=== PATIENT | male | born 1945 | race Caucasian/White ===

== ENCOUNTER → 2017-05-18 | Outpatient (CLI) | payer OTHER ==
[~2017-05-18] MED LIST: IOPAMIDOL (ISOVUE-300) 100 ML BTL ONE
== END ==
LOC: FIMAGING 14:59
PROVIDERS: ATTEND Specialist
DX: N20.0 Calculus of kidney (principal); N39.0 Urinary tract infection, site not specified; N28.1 Cyst of kidney, acquired; K59.00 Constipation, unspecified; K57.30 Diverticulosis of large intestine without perforation or abscess without bleeding
CPT/HCPCS: 74178; Q9967

== ENCOUNTER 2018-08-31 05:37 | Observation (INO) | payer OTHER ==
[2018-08-31] MEDS ORDERED: DILTIAZEM 25 MG/5 ML VIAL IVP ONE ×2 (05:47→05:52)
[2018-08-31] MEDS ORDERED: DILTIAZEM HCL/D5W 125 ML IV ONE (05:52)
[2018-08-31] MEDS ORDERED: NS 500 ML IV ONE ×2 (05:52→06:21)
--- NOTE | 2018-08-31 05:56 | EDPHY ---
H & P Stated Complaint: afib Time Seen by Provider: 08/31/18 05:44 HPI/ROS: HPI The patient presents with palpitations, chest pain, shortness of breath, dizziness and diaphoresis which began a little bit before 4:00 a.m.. He fell restless when trying to sleep and cutting get comfortable. He then noticed palpitations beginning. He had a heavy sensation of a congestion throughout his chest and reports that he was painting and became somewhat sweaty. His because his symptoms continued, he came in. He has a history of atrial fibrillation with RVR, he was cardioverted for this in 2016. He is on Eliquis. REVIEW OF SYSTEMS 10 systems were reviewed and negative with the exception of the elements mentioned in the history of present illness. PMHx: Hypertension, obstructive sleep apnea, atrial fibrillation on Eliquis, obesity Soc Hx: Housed, here with his PHYSICAL General Appearance: Alert, no distress Eyes: Pupils equal and round no pallor or injection ENT, Mouth: Mucous membranes moist Respiratory: There are no retractions, lungs are clear to auscultation Cardiovascular: Tachycardic, irregularly irregular Gastrointestinal: Abdomen is soft and non-tender, no masses, bowel sounds normal Neurological: A&O, moves all extremities Skin: Warm and dry, no rashes Musculoskeletal: Neck is supple non tender Extremities: symmetrical, full range of motion Psychiatric: Patient is oriented X 3, there is no agitation Source: Patient Exam Limitations: No limitations - Personal History Current Tetanus Diphtheria and Acellular Pertussis (TDAP): No - Medical/Surgical History Hx Asthma: No Hx Chronic Respiratory Disease: No Hx Diabetes: Yes Hx Cardiac Disease: Yes Hx Renal Disease: No Hx Cirrhosis: No Hx Alcoholism: No Hx HIV/AIDS: No Hx Splenectomy or Spleen Trauma: No Other PMH: HTN SLEEP APNEA, obesity, AFib - Social History Smoking Status: Former smoker Constitutional: Initial Vital Signs Temperature (C) 36.6 C 08/31/18 05:41 Heart Rate 145 H 08/31/18 05:41 Respiratory Rate 18 08/31/18 05:41 Blood Pressure 182/91 H 08/31/18 05:41 O2 Sat (%) 91 L 08/31/18 05:41 O2 Delivery Mode Nasal Cannula O2 (L/minute) 2 Allergies/Adverse Reactions: No Known Allergies Allergy (Verified 08/31/18 05:44) Home Medications: Medication Instructions Recorded Lisinopril/Hydrochlorothiazide 1 each PO DAILY 02/15/16 [Zestoretic 20-25 Tablet] Metoprolol Succinate Xr [Toprol Xl 50 mg PO DAILY 02/15/16 50 mg (*)] Naproxen Sodium [Aleve 220 MG (*)] 220 - 440 mg PO DAILY PRN 02/15/16 Simvastatin 40 mg PO HS 02/15/16 metFORMIN HCL [Glucophage 500 mg 500 mg PO BID 02/15/16 (*)] Apixaban [Eliquis] 5 mg PO BID #60 tab 02/25/16 Ezetimibe [Zetia 10 MG (*)] 10 mg PO DAILY 08/31/18 Herbals/Supplements -Info Only 1 ea PO DAILY 08/31/18 Naphazoline HCl/Glycerin [Clear 1 drop EACHEYE DAILY PRN 08/31/18 Eyes Redness Relief Drop] Medical Decision Making - Diagnostics EKG Interpretation: EKG: Complete interpretation has been separately recorded in the [employer] archive. Summary impression: Atrial fibrillation with RVR, rate of approximately 150 Imaging Results: Chest x-ray single view shows mild cardiomegaly, interpreted by me, radiology interpretation pending. Imaging: I viewed and interpreted images myself Differential Diagnosis: 72-year-old man with history of atrial fibrillation presents with several hours of palpitations, shortness of breath, congested sensation of his chest, dizziness. Here, blood pressure is actually elevated, he is in AFib with RVR. Plan for treatment initially with diltiazem. Patient received diltiazem bolus and was started on a drip. Heart rate remained 110s to 120s in atrial fibrillation. His symptoms improved somewhat. His labs were relatively unremarkable with slightly elevated BNP though not as high as previous values. He was given some magnesium. I feel he should be admitted for ongoing atrial fibrillation with RVR. I have discussed the case with Dr. Malhotra who will admit the patient. Differential diagnosis includes AFib with RVR, CHF with exacerbation, ACS, less likely pulmonary embolism. - Data Points Laboratory Results: Laboratory Results 08/31/18 05:58 08/31/18 05:58 Medications Given: Apixaban (Eliquis) 5 mg PO BID CARIDAD Stop: 02/27/19 11:29 Last Admin: 08/31/18 21:39 Dose: 5 mg Diltiazem/Dextrose (Diltiazem 125mg/125ml (Premix)) 125 mls @ 0 mls/hr IV CONT CARIDAD; Per Protocol PRN Reason: Protocol Stop: 02/27/19 06:59 Last Admin: 08/31/18 14:15 Dose: 125 mls Insulin Human Lispro (Humalog Lispro) 0 unit SC TIDMEAL CARIDAD PRN Reason: Protocol Stop: 02/27/19 07:59 Last Admin: 08/31/18 18:36 Dose: 8 units Metformin HCl (Glucophage) 500 mg PO BID CARIDAD Stop: 02/27/19 20:59 Last Admin: 08/31/18 21:39 Dose: 500 mg Discontinued Medications Diltiazem HCl (Cardizem 25 Mg/5 Ml Vial) 27.2155 mg IVP EDNOW ONE Stop: 08/31/18 05:53 Last Admin: 08/31/18 05:58 Dose: 27.2155 mg Diltiazem/Dextrose (Diltiazem 125mg/125ml (Premix)) 125 mls @ 0 mls/hr IV EDNOW ONE; As Directed PRN Reason: Protocol Stop: 08/31/18 05:53 Last Admin: 08/31/18 06:11 Dose: 125 mls Sodium Chloride (Ns) 500 mls @ 0 mls/hr IV EDNOW ONE; Wide Open PRN Reason: Protocol Stop: 08/31/18 05:53 Last Admin: 08/31/18 06:07 Dose: 500 mls Sodium Chloride (Ns) 500 mls @ 1,000 mls/hr IV EDNOW ONE PRN Reason: Protocol Stop: 08/31/18 06:50 Last Admin: 08/31/18 06:30 Dose: 500 mls Magnesium Sulfate (Magnesium Sulf 2 Gm (Premix)) 50 mls @ 50 mls/hr IV EDNOW ONE Stop: 08/31/18 07:20 Last Admin: 08/31/18 06:44 Dose: 50 mls Metoprolol Succinate (Toprol Xl) 50 mg PO ONCE ONE Stop: 08/31/18 11:41 Last Admin: 08/31/18 12:29 Dose: 50 mg Point of Care Test Results: Chemistry 08/31/18 05:57 POC Troponin I 0.02 ng/mL ng/mL (0.00-0.08) Departure - Departure Disposition: [facility] Inpatient Acute Clinical Impression: Atrial fibrillation with RVR Chest pain Qualifiers: Chest pain type: unspecified Qualified Code(s): R07.9 - Chest pain, unspecified Condition: Fair
[2018-08-31 06:06] LABS: PLATELET COUNT 150 10^3/uL (150-400)
[2018-08-31] MEDS ORDERED: MAGNESIUM SULF 2 GM/WATER 50 ML IV ONE (06:21)
[2018-08-31] MEDS ORDERED: ONDANSETRON DISINTEGRATING 4 MG TAB PO PRN (06:58)
[2018-08-31] MEDS ORDERED: ACETAMINOPHEN 325 MG TAB PO PRN (06:58)
[2018-08-31] MEDS ORDERED: ONDANSETRON 4 MG/2 ML VIAL IVP PRN (06:58)
[2018-08-31] MEDS ORDERED: DILTIAZEM HCL/D5W 125 ML IV SCH (07:00)
[2018-08-31] MEDS ORDERED: D50W 25 GM/50 ML SYR IVP PRN (07:03)
--- NOTE | 2018-08-31 07:28 | PDGENHP ---
History and Physical - Chief Complaint Afib - History of Present Illness 72 yo M w/ AF, HTN, and DM presents with symptoms of atrial fibrillation. The patient was lying in bed when he noted chest heaviness and sweating. These are symptom he associates with Afib, which he has only had one or two other times. In 2016 he required cardioversion for a similar presentation. He presented to the ED and was found to be in AF w/ RVR with rates >160. He remains tachycardic despite diltiazem bolus and drip. He denies recent illness or allison chest pain. His BG is 394 on admission. He takes only metformin and rarely check his sugar at home. He has been compliant with metoprolol, metformin, and apixaban. He is being admitted to PCU for management of AF w/ RVR. Case discussed with ED physician Dr. Wells; records reviewed and summarized above. History Information - Allergies/Home Medication List Allergies/Adverse Reactions: No Known Allergies Allergy (Verified 08/31/18 05:44) Home Medications: Aspirin EC [Aspirin EC 81 mg (*)] 81 mg PO HS 02/15/16 [Last Taken 03/29/16 20: 00] Lisinopril/Hydrochlorothiazide [Zestoretic 20-25 Tablet] 1 each PO DAILY [Last Taken 03/30/16 06:00] Metoprolol Succinate Xr [Toprol Xl 50 mg (*)] 50 mg PO DAILY 02/15/16 [Last Taken 03/31/16 06:00] Naproxen Sodium [Aleve 220 MG (*)] 220 - 440 mg PO DAILY PRN 02/15/16 [Last Taken 02/24/16 08:00] Ranitidine HCl [Zantac] 150 mg PO DAILY PRN 02/15/16 [Last Taken 02/23/16] Simvastatin 40 mg PO HS 02/15/16 [Last Taken 03/29/16 20:00] metFORMIN HCL [Glucophage 500 mg (*)] 500 mg PO BIDMEAL 02/15/16 [Last Taken 08:00] Aloe Vera Extract/Allantoin 03/31/16 [Last Taken 03/29/16 07:00] Vitamin C 03/31/16 [Last Taken 03/29/16 07:00] I have personally reviewed and updated: family history, medical history - Past Medical History atrial fibrillation, diabetes type 2, hypertension - Surgical History Additional surgical history: HAMZAH/cardioversion - Family History Positive for: CAD - Social History Smoking Status: Former smoker Review of Systems Review of Systems: ROS: 10pt was reviewed & negative except for what was stated in HPI & below Physical Exam Physical Exam: Temp Pulse Resp BP Pulse Ox 36.7 C 117 H 18 122/82 H 94 08/31/18 07:20 08/31/18 07:20 08/31/18 07:20 08/31/18 07:20 08/31/18 07:20 O2 (L/minute) 3 Constitutional: not in pain, obese Eyes: PERRL, EOMI Ears, Nose, Mouth, Throat: moist mucous membranes, no oral mucosal ulcers Cardiovascular: irregularly irregular, tachycardia Respiratory: no respiratory distress, clear to auscultation Gastrointestinal: normoactive bowel sounds, soft, non-tender abdomen Skin: warm, normal color Neurologic: AAOx3, CN II-XII Intact Psychiatric: interacting appropriately, not anxious Lab Data & Imaging Review 08/31/18 05:58 08/31/18 05:58 WBC 9.38 10^3/uL (3.80-9.50) 08/31/18 05:58 RBC 5.81 10^6/uL (4.40-6.38) 08/31/18 05:58 Hgb 18.0 g/dL (13.7-17.5) H 08/31/18 05:58 Hct 50.6 % (40.0-51.0) 08/31/18 05:58 MCV 87.1 fL (81.5-99.8) 08/31/18 05:58 MCH 31.0 pg (27.9-34.1) 08/31/18 05:58 MCHC 35.6 g/dL (32.4-36.7) 08/31/18 05:58 RDW 13.0 % (11.5-15.2) 08/31/18 05:58 Plt Count 150 10^3/uL (150-400) 08/31/18 05:58 MPV 10.4 fL (8.7-11.7) 08/31/18 05:58 Neut % (Auto) 67.1 % (39.3-74.2) 08/31/18 05:58 Lymph % (Auto) 17.0 % (15.0-45.0) 08/31/18 05:58 [place] % (Auto) 12.3 % (4.5-13.0) 08/31/18 05:58 Eos % (Auto) 2.3 % (0.6-7.6) 08/31/18 05:58 Baso % (Auto) 0.9 % (0.3-1.7) 08/31/18 05:58 Nucleat RBC Rel Count 0.0 % (0.0-0.2) 08/31/18 05:58 Absolute Neuts (auto) 6.30 10^3/uL (1.70-6.50) 08/31/18 05:58 Absolute Lymphs (auto) 1.59 10^3/uL (1.00-3.00) 08/31/18 05:58 Absolute Monos (auto) 1.15 10^3/uL (0.30-0.80) H 08/31/18 05:58 Absolute Eos (auto) 0.22 10^3/uL (0.03-0.40) 08/31/18 05:58 Absolute Basos (auto) 0.08 10^3/uL (0.02-0.10) 08/31/18 05:58 Absolute Nucleated RBC 0.00 10^3/uL (0-0.01) 08/31/18 05:58 Immature Gran % 0.4 % (0.0-1.1) 08/31/18 05:58 Immature Gran # 0.04 10^3/uL (0.00-0.10) 08/31/18 05:58 Sodium 135 mEq/L (135-145) 08/31/18 05:58 Potassium 4.5 mEq/L (3.5-5.2) 08/31/18 05:58 Chloride 96 mEq/L (97-110) L 08/31/18 05:58 Carbon Dioxide 25 mEq/l (22-31) 08/31/18 05:58 Anion Gap 14 mEq/L (6-14) 08/31/18 05:58 BUN 30 mg/dL (7-23) H 08/31/18 05:58 Creatinine 1.0 mg/dL (0.7-1.3) 08/31/18 05:58 Estimated GFR > 60 08/31/18 05:58 Glucose 394 mg/dL (70-100) H 08/31/18 05:58 Calcium 9.4 mg/dL (8.5-10.4) 08/31/18 05:58 Magnesium 1.5 mg/dL (1.6-2.3) L 08/31/18 05:58 POC Troponin I 0.02 ng/mL (0.00-0.08) 08/31/18 05:57 NT-Pro-B Natriuret Pep 540 pg/mL (0-125) H 08/31/18 05:58 Specimen Hemolysis 150 08/31/18 05:58 Visualized and Interpreted EKG results: Yes EKG Interpretation: Positive for: other (AF w/ RVR) Assessment & Plan Assessment: 72 yo M w/ hx of AF, HTN, non-obstructive CAD, and DM presents with AF w/ RVR. Plan: 1. Paroxysmal AF w RVR - With sudden onset around midnight. No clear trigger aside from possible contribution of poorly controlled blood glucose. He denies recent illness or allison chest pain. HR>160 on arrival, remains >130 despite diltiazem bolus and drip. He is anticoagulated with apixaban and takes Toprol XL 50 mg qD as an outpatient. - Observe in PCU - Monitor on telemetry - Diltiazem drip - Continue apixaban - Cardiology consult later today if not resolving with diltiazem drip alone 2. DM, uncontrolled - Patient takes only metformin as an outpatient and rarely checks blood sugar. Blood glucose 394 on admission. - Will treat with insulin lispro sliding scale initially, may need basal dosing as well - Monitor BG ACHS, D50 IV PRN for hypoglycemia 3. CAD - Non-obstructive per 2016 [facility]. He does have chest heaviness but no chest pain. Troponin negative on admission. - Monitor on telemetry - Will repeat troponin at 1200 - Continue home medications pending reconciliation 4. HTN - Continue home medications pending reconciliation Diet - NPO initially in case he needs cardioversion Code - Full Ppx - apixaban Dispo - Admit under observation status
[2018-08-31] MEDS: INSULIN LISPRO 100 UNIT/ML SC SCH ×3 (09:28→18:36)
[2018-08-31] MEDS ORDERED: METOPROLOL SUCCINATE XR 50 MG TAB PO ONE (11:40)
[2018-08-31] MEDS ORDERED: PROTOCOL MAGNESIUM 1 DOSE IV PRN (11:41)
[2018-08-31] MEDS: APIXABAN 5 MG TAB PO SCH ×2 (12:29→21:39)
--- NOTE | 2018-08-31 14:08 | GHP ---
[f rep st] HISTORY AND PHYSICAL DATE OF ADMISSION: 08/31/2018 ADMIT DIAGNOSIS: Atrial fibrillation. We were asked by the hospitalist to evaluate and follow along treatment for the patient's atrial fibrillation. He is a 72-year-old male with a past history of atrial fibrillation, hypertension, and diabetes mellitus. Last evening, he noted a heavy sensation in his chest and sweating. These are the symptoms he has had in the past when he has had atrial fibrillation. He has had past cardioversion, the most recent in 2016. When he presented to the emergency room early this morning, he was found to be in atrial fibrillation with RVR with rates greater than 166. His rates remained elevated despite diltiazem bolus and drip. He is diabetic, and blood sugar on admission was 394. He does take metoprolol, however, does not follow his blood sugars at home. He is compliant with his home medications including metoprolol, metformin, and apixaban for anticoagulation. He has remained in atrial fibrillation while being watched closely on TCU. At time of my visit, he comments that he is not aware of the atrial fibrillation. He denies shortness of breath, chest pain, or dizziness. At time of my visit, he is resting comfortably in bed. ALLERGIES: He has no known allergies. HOME MEDICATIONS: Include aspirin enteric-coated 81 mg, lisinopril/ hydrochlorothiazide 20/25 mg 1 tablet daily, metoprolol succinate 50 mg daily, Aleve 220 mg to 440 mg daily as needed, Zantac 150 mg daily as needed, simvastatin 40 mg at bedtime, metformin 500 mg twice a day with meals, aloe vera extract daily, vitamin C daily. PAST MEDICAL HISTORY: 1. Atrial fibrillation. 2. Diabetes mellitus type 2. 3. Hypertension. SURGICAL HISTORY: He has had no surgeries. He has had past HAMZAH/cardioversion. FAMILY HISTORY: Coronary artery disease. SOCIAL HISTORY: Former smoker. Denies alcohol use. He lives at home independently. REVIEW OF SYSTEMS: 10-point review of systems is negative except for that indicated in the HPI. PHYSICAL EXAM: VITAL SIGNS: Blood pressure 122/82, heart rate 104 to 120, atrial fibrillation, temperature 36.7, respirations 18, pulse ox 94%. CONSTITUTIONAL: He is obese. He denies any pain. EYES: PERRL. EAR, NOSE, THROAT: Membranes are moist. CARDIOVASCULAR: Irregular heart rate with tachycardia. RESPIRATORY: He is in no respiratory distress. GASTROINTESTINAL : Normoactive bowel sounds. Soft and nontender abdomen. SKIN: Warm and dry with normal color. NEUROLOGIC: Alert and oriented x3. PSYCHIATRIC: He interacts appropriately. INTERROGATION: Admission EKG showed atrial fibrillation with a rate 104 to 120. Chest x-ray: Impression: Chronic cardiomegaly without decompensation. IMPRESSION AND PLAN: 1. Atrial fibrillation. He has continued to remain in atrial fibrillation despite diltiazem drip. He has no chest pain or shortness of breath. He is taking oral metoprolol succinate 50 mg daily. He will continue on apixaban 5 mg twice daily for anticoagulation. Should he not convert, we will consider DC cardioversion with possible HAMZAH prior. Will consider getting an echocardiogram to further evaluate his cardiac status. 2. Hypertension. His blood pressure is currently well controlled at 122/82. He will continue on hydrochlorothiazide 25 mg daily along with Zestril 20 mg daily and Toprol-XL 50 mg daily. 3. Diabetes type 2. He takes metformin 500 mg twice daily and will continue. While hospitalized, he is on a sliding scale Humalog lispro. At this time, he currently is tolerating the atrial fibrillation without symptoms. We will continue to follow along closely. At this time, he is resting comfortably. /[id number]/MODL MTDD
[2018-08-31] MEDS ORDERED: NS 1,000 ML IV ONE (15:54)
[2018-08-31] MEDS ORDERED: ATROPINE SULFATE 1 MG/10 ML SYR IVP ONE (15:54)
[2018-08-31 16:35] LABS: PLATELET COUNT 152 10^3/uL (150-400)
[2018-08-31 16:49] LABS: INR 1.25 (0.83-1.16); PROTIME(PATIENT) 15.2 SEC (12.0-15.0)
--- NOTE | 2018-08-31 19:30 | ECHO ---
[email or web address] [address] Main: [phone] Echocardiography Examination Transthoracic Name: ERWIN CAMPOS MR#: [id number] Study Date: 08/31/2018 Study Time: 03:18 PM Date of : 1945 Age: 72 year(s) Height: 170.2 cm (67 in.) Weight: 116.12 kg (256 lb.) BSA: 2.25 m2 Gender: Male Examination: Echo Contrast: Image Quality: Technically Difficult Rhythm: Atrial fibrillation Heart Rate: 111 bpm BP: 122 mmHg/77 mmHg Indication: Atrial Fibrillation Procedure Staff Referring Physician: Watch And Clock Repair Clerk: Madeleine Conley [facility] Reading Physician: Berenice Martinez MD Requesting Provider: Ordering Physician: Hope Ruiz Indication: Atrial Fibrillation Measurements Chambers AV/MV Label Value Normal Value Label Value Normal Value LVOTd 2.1 cm (1.9cm - 2.1cm) AV PGmean 5 mmHg LVOT VTI 20.2 cm (18cm - 22cm) MARCIE (VTI) 3.3 cm2 LVDd, 2D 3.9 cm (4.2cm - 5.9cm) MV E Vmax 1.17 m/s LVDs, 2D 2.1 cm (2.1cm - 4cm) MV DT 190 ms IVSd, 2D 1.9 cm (0.6cm - 1.1cm) MV PHT 0.05 s LVPWd, 2D 1.5 cm (0.6cm - 1cm) MVA PHT 4.1 cm2 LVEF, 2D 78 % (54% - 74%) MV PHT 54 ms LVOT PGmean 3 mmHg TV/PV LVOT Vmean 0.87 m/s Label Value Normal Value RVDd, 2D 2.6 cm (1.9cm - 3.8cm) TR Pmax 31 mmHg LA Volume, BP 75 ml (18ml - 58ml) TR Vmax 2.8 m/s LADs, 2D 4.5 cm (3cm - 4cm) PV PGmax 5 mmHg LAESV index, BP 33.3 ml/m2 PV Vmax, Caliper 1.11 m/s (0.6m/s - 0.9m/s) RA Area 22.2 cm2 Additional Vessels Label Value Normal Value AoAsc 3.7 cm AoRoot, 2D 3.6 cm (1.4cm - 2.6cm) Patient: ERWIN CAMPOS Study Date: 08/31/2018 Page 1 of 3 03:18 PM Conclusions 1. moderate concentric LVH. Increased LVOT gradient without increase with Valsalva. Global hypercontractility with an ejection fraction of 70%. No regional wall motion abnormalities. 2. the right ventricle is normal in size and systolic function. 3. Borderline left atrial dilation. Mild to moderate right atrial dilation. 4. Moderate annular calcification, especially of the posterior annulus and leaflet. No mitral stenosis. No mitral regurgitation. 5. Mild tricuspid regurgitation with upper normal pulmonary artery pressure. 6. compared with February 2016 no significant change Findings Left Ventricle: Left ventricle is normal in size. Global hypercontractility of the left ventricle. EF evaluated by visual assessment. The EF is visually estimated to be 70 %. EF range is estimated at 70 % - 75 %. There is moderate concentric left ventricular hypertrophy.Increased velocity throughout the LVOT. At rest max pressure gradient is 59mmHg and with valsalval there is no significant increase.There are no regional wall motion abnormalities. Unable to assess Diastolic Dysfunction due to atrial fibrillation/a flutter. Right Ventricle: Normal size right ventricle. Right ventricular systolic function is normal. Left Atrium: The left atirum is borderline dilated. Right Atrium: The right atrium is mildly to moderately dilated. Mitral Valve: No significant mitral regurgitation. No mitral valve stenosis. There is mild mitral thickening. There is moderate mitral annular calcification. Aortic Valve: The aortic valve is structurally normal and trileaflet. No aortic valve regurgitation. There is no aortic stenosis. Tricuspid Valve: Tricuspid valve is poorly visualized. Mild tricuspid regurgitation. Pulmonary artery pressure is upper limits of normal. Pulmonic Valve: Pulmonic leaflets are structurally normal. No pulmonic valve regurgitation is evident. Aorta: The aortic root size in 2D measures 3.6 cm. The aortic root exhibits normal size. The ascending aorta measures 3.7 cm. Ascending aorta is normal in size. Aorta Measurements AoRoot, 2D is 3.6 cm. IVC: The inferior vena cava is normal in size and course. Pericardium: No pericardial effusion. Exam Details Procedure Ordered: Echo Procedure Status: Routine study Image Quality: Technically Difficult Facility Location: Cardiac Echo 1 (No Signature Object) Patient: ERWIN CAMPOS Study Date: 08/31/2018 Page 2 of 3 03:18 PM Patient: ERWIN CAMPOS Study Date: 08/31/2018 Page 3 of 3 03:18 PM [id number]
[2018-08-31] MEDS: metFORMIN HCL 500 MG TAB PO SCH (21:39)
--- NOTE | 2018-08-31 21:52 | HOSPPROG ---
Hospitalist Progress Note Assessment/Plan: * Afib -rapid rates continue despite IV diltiazem gtt and PO metoprolol -cards consulted to consider cardioversion -Eliquis * DM, uncontrolled -check HgA1c * CAD -non-obstructive per cath 2016 -trend troponins - likely due to demand from rapid rates * Morbid Obesity -BMI 40 Subjective: no new complaints Objective: Vital Signs Temp Pulse Resp BP Pulse Ox 36.7 C 130 H 20 135/81 H 92 08/31/18 20:00 08/31/18 20:00 08/31/18 20:00 08/31/18 20:00 08/31/18 20:00 Laboratory Results 08/31/18 16:23 08/30/18 08/31/18 09/01/18 05:59 05:59 05:59 Intake Total 1520 Output Total 800 Balance 720 PT 15.2 SEC (12.0-15.0) H 08/31/18 16:23 INR 1.25 (0.83-1.16) H 08/31/18 16:23 tele -reviewed - rapid afib ECHO - EF gurinder d/w Hope Ruiz regarding cardiology consult - Physical Exam Constitutional: no apparent distress, appears nourished, not in pain Cardiovascular: irregularly irregular, tachycardia, No JVD, No edema Respiratory: no respiratory distress, no rales or rhonchi, clear to auscultation Gastrointestinal: normoactive bowel sounds, soft, non-tender abdomen, no palpable masses Skin: no rashes or abrasions, no fluctuance, no induration Neurologic: AAOx3, sensation intact bilaterally Psychiatric: interacting appropriately, not anxious, not encephalopathic, thought process linear ICD10 Worksheet Patient Problems: Problems Problem Status Onset Nausea & vomiting Acute Sepsis Acute Pyelonephritis, acute Acute Chest pain Acute Atrial fibrillation Acute Abnormal EKG Acute Elevated troponin Acute Elevated d-dimer Acute Hypotension Acute Atrial fibrillation with RVR Acute
[2018-09-01] MEDS ORDERED: ATROPINE SULFATE 1 MG/10 ML SYR IVP ONE ×2 (06:00→10:59)
[2018-09-01] MEDS ORDERED: NS 1,000 ML IV ONE (06:00)
[2018-09-01] MEDS ORDERED: MAGNESIUM SULF 1 GM/DEXTROSE 100 ML IV ONE (07:28)
[2018-09-01] MEDS: INSULIN LISPRO 100 UNIT/ML SC SCH ×2 (08:35→13:19)
[2018-09-01] MEDS: metFORMIN HCL 500 MG TAB PO SCH (08:36)
[2018-09-01] MEDS: APIXABAN 5 MG TAB PO SCH (08:37)
[2018-09-01] MEDS ORDERED: LISINOPRIL/HCTZ 10/12.5 MG 1 EA TAB PO SCH (09:00)
[2018-09-01] MEDS ORDERED: HYDROCHLOROTHIAZIDE 25 MG TAB PO SCH (09:00)
[2018-09-01] MEDS ORDERED: EZETIMIBE 10 MG TAB PO SCH (09:00)
[2018-09-01] MEDS ORDERED: METOPROLOL SUCCINATE XR 50 MG TAB PO SCH (09:00)
[2018-09-01] MEDS ORDERED: ATORVASTATIN CALCIUM 20 MG TAB PO SCH (09:00)
--- NOTE | 2018-09-01 10:07 | PDCARPN ---
Cardiology Progress Note Chief Complaint: " I feel tired" Assessment/Plan: Assessment: The patient is a 72-year-old male with a history of diabetes mellitus, hypertension, obstructive sleep apnea(treated with CPAP), mild pulmonary hypertension, LVH, moderate coronary disease without obstruction and paroxysmal atrial fibrillation (on Eliquis). The patient was admitted to the hospital yesterday for atrial fibrillation. He reports not being able to sleep in the early hours on Wednesday morning. The patient noted he began to sweat and was "panting". He had a cardioversion previously in 2016. His current medication regimen includes Diltiazem and Eliquis. Plan: The patient should proceed with CV as he has not missed a single dose of Eliquis in the past 45 days. He will not require HAMZAH for that reason. 09/01/18 14:00 Subjective: I am feeling fatigued and cannot sleep when I am in atrial fibrillation. Reviewed/Discussed With: family, hospitalist, multidisciplinary team Objective: Vital Signs (8 Hrs) Temp Pulse Resp BP Pulse Ox 09/01/18 07:16 36.9 C 112 H 14 131/82 H 92 09/01/18 04:00 37.1 C 115 H 18 104/64 96 Intake/Output (24 Hrs) 08/31/18 09/01/18 09/02/18 05:59 05:59 05:59 Intake Total 1692.5 Output Total 1125 Balance 567.5 Intake: Oral (ml) 520 IV Infused (ml) 1172.5 Diltiazem HCl/D5w 125 ml 172.5 @ Per Protocol IV CONT CARIDAD Rx#:[id number] Output: Urine (ml) 1125 Urinal 1125 Other: Weight 116.483 kg Number of Voids Urinal 2 Result Diagrams: 08/31/18 16:23 09/01/18 06:30 Cardiac Labs: Cardiac Lab Results (72 Hrs) 09/01/18 09/01/18 08/31/18 06:30 00:30 11:47 Troponin I 0.144 H 0.184 H 0.185 H EKG: Atrial fibrillation with rpid ventricular response. Telemetry: A fib RVR Echocardiogram: LVH with resting gradient across the outflow tract that does not increase with Valsalva - Physical Exam Constitutional: WDWN Eyes: anicteric sclera Ears, Nose, Mouth, Throat: moist mucous membranes Cardiovascular: irregularly irregular Respiratory: clear to auscultate bilat, no crackles, no wheezes, No reduced air movement Gastrointestinal: normoactive bowel sounds Neurologic: AAOx3 Psychiatric: cooperative, interactive - . Pending Discharge Within 24 Hours: Yes Pending Discharge Within 48 Hours: Yes ICD10 Worksheet Patient Problems: Problems Problem Status Onset Nausea & vomiting Acute Sepsis Acute Pyelonephritis, acute Acute Chest pain Acute Atrial fibrillation Acute Abnormal EKG Acute Elevated troponin Acute Elevated d-dimer Acute Hypotension Acute Atrial fibrillation with RVR Acute
--- NOTE | 2018-09-01 11:02 | PDHPUP ---
History & Physical Update H&P update statement: This history and physical update is based on an assessment of the patient which was completed after admission or registration (within 24 hours), but prior to the surgery/procedure. H&P update: H&P reviewed & patient examined, changes noted (patient remains in atrial fibrillation with rapid ventricular response)
--- NOTE | 2018-09-01 11:03 | PDPROPOC ---
Sedation Plan of Care Sedation Plan of Care: vital signs stable, mental status noted, patient educated of risks, benefits, alternatives, patient can tolerate sedation ASA Classification: ASA 3 Planned drugs: midazolam, other (Etomidate) Mallampati Score: Class 3 Mallampati Reference Image: Patient passed 3-3-2 rule?: No
[2018-09-01] MEDS ORDERED: MIDAZOLAM 2 MG/2 ML VIAL ONE (11:53)
[2018-09-01] MEDS ORDERED: ETOMIDATE 40 MG/20 ML INJ ONE (11:53)
[2018-09-01] MEDS ORDERED: fentaNYL 100 MCG/2 ML INJ ONE (11:54)
[2018-09-01] MEDS ORDERED: ATROPINE SULFATE 1 MG/10 ML SYR ONE (11:59)
--- NOTE | 2018-09-01 12:22 | PDTEE1 ---
HAMZAH Cardioversion Procedure Procedure: electrical cardioversion Indications: atrial fibrillation Consent: signed and in chart Anticoagulation: eliquis Procedural Details: PROCEDURE: DC CARDIOVERSION/ HAMZAH WAS NOT PERFORMED SECONDARY TO UNINTERRUPTED DOAC AGENT CONFIRMED NO DOSES MISSED FOR LAST 45 DAYS. DATE OF PROCEDURE: 09/01/2018 COMPLICATIONS: None CARDIAC REHABILITATION SPECIALIST: Milton Cifuentes MD INDICATION AND APPROPRIATE USE CRITERIA: Atrial Fibrillation with rapid ventricular response PROCEDURE IN DETAIL: We proceeded with elective DC cardioversion, the pads were placed in the anterior and posterior position. The patient was given 2mg of Versed and 6mg Etomidate for deep sedation prior to being cardioverted. There was 300 J of biphasic synchronized counter shock delivered. The patient was successfully returned to normal sinus rhythm with occasional PACs and intermittent junctional escape. FINAL IMPRESSION: Successful elective DC cardioversion without immediate complication. The patient will remain on Eliquis 5mg PO BID for at least 30 days post procedure. The patient is to avoid caffeine, alcohol and strenuous exercise for the next 3 weeks. Synchronized cardioversion attempt #1: 300J Results: normal sinus rhythm Conclusions: successful cardioversion Patient Problems: Problems Problem Status Onset Atrial fibrillation with RVR Acute Chest pain Acute Abnormal EKG Acute Atrial fibrillation Acute Elevated d-dimer Acute Elevated troponin Acute Hypotension Acute Nausea & vomiting Acute Pyelonephritis, acute Acute Sepsis Acute
[2018-09-01 13:34] VITALS: BP 127/76
--- NOTE | 2018-09-01 19:02 | GDS ---
[f rep st] DISCHARGE SUMMARY DISCHARGE DIAGNOSES: 1. Atrial fibrillation, status post cardioversion. 2. Diabetes type 2, uncontrolled. 3. Morbid obesity. Body mass index 40. 4. Nonobstructive coronary artery disease. HISTORY: The patient is a 72-year-old male who presented with rapid AFib. He was put on IV diltiaze m drip and failed to have good rate control. Cardiology was consulted. He underwent cardioversion t his morning without difficulty. He was discharged on oral metoprolol and Eliquis. He had borderline troponin elevation. This was felt to be due to demand of his rapid rate. He had a nonobstructive p attern on his cardiac catheterization in 2016. The patient was noted to have very uncontrolled diabetes throughout the stay. Blood sugars were in t he high 200s to low 300s consistently. We rechecked the hemoglobin A1c and it was 9. He says it has always been 7 in the past. I will increase his metformin at discharge, and I recommended he follow up closely with Dr. Engle for further diabetes management. DISCHARGE MEDICATIONS: Please see computerized record for full detailed list. New medications: Metformin increased to 1000 mg p.o. b.i.d. ADDITIONAL DISCHARGE INSTRUCTIONS: 1. Follow up with Dr. Engle for ongoing diabetes management with noted hemoglobin A1c of 9.0. 2. Follow up with Dr. Berenice Martinez in 2 weeks. Greater than 30 minutes' time was spent arranging this discharge. Patient was seen and examined by kip garcia on the date of discharge. /[id number]/MODL
--- NOTE | 2018-09-02 06:36 | CPEKG ---
Test Reason : OPEN Blood Pressure : / mmHG Vent. Rate : 150 BPM Atrial Rate : 168 BPM P-R Int : 085 ms QRS Dur : 104 ms QT Int : 325 ms P-R-T Axes : -83 -43 124 degrees QTc Int : 514 ms Atrial fibrillation with rapid V-rate Paired ventricular premature complexes Aberrant conduction of SV complex(es) Left anterior fascicular block LVH with secondary repolarization abnormality Confirmed by Aide Wells ([id number]) on 09/02/2018 6:36:34 AM Referred By: Aide Wells Confirmed By:Aide Wells
--- NOTE | 2018-09-02 13:18 | CPEKG ---
Test Reason : OPEN Blood Pressure : / mmHG Vent. Rate : 075 BPM Atrial Rate : 075 BPM P-R Int : 179 ms QRS Dur : 106 ms QT Int : 453 ms P-R-T Axes : -06 -38 127 degrees QTc Int : 506 ms Sinus rhythm LVH with secondary repolarization abnormality Prolonged QT interval Confirmed by Rui Martinez ([id number]) on 09/02/2018 1:17:47 PM Referred By: Dhiraj Malhotra Confirmed By:Rui Martinez
--- NOTE | 2018-09-02 13:18 | CPEKG ---
Test Reason : OPEN Blood Pressure : / mmHG Vent. Rate : 064 BPM Atrial Rate : 064 BPM P-R Int : 178 ms QRS Dur : 107 ms QT Int : 471 ms P-R-T Axes : 033 -34 123 degrees QTc Int : 486 ms Sinus arrhythmia LVH with secondary repolarization abnormality Borderline prolonged QT interval Confirmed by Rui Martinez ([id number]) on 09/02/2018 1:17:29 PM Referred By: Dhiraj Malhotra Confirmed By:Rui Martinez
== END 2018-09-01 15:48 | disposition home or self-care (01) ==
LOC: INTOOBSV 06:58 → F2W 08:00
PROVIDERS: ADMIT Student in an Organized Health Care Education/Training Program; ATTEND Internal Medicine
PROC: 5A2204Z Restoration of Cardiac Rhythm, Single (ICD-10-PCS; principal; 2018-09-01)
DX: I48.91 Unspecified atrial fibrillation (principal); Z79.01 Long term (current) use of anticoagulants; E11.65 Type 2 diabetes mellitus with hyperglycemia; Z79.84 Long term (current) use of oral hypoglycemic drugs; E66.01 Morbid (severe) obesity due to excess calories; Z68.41 Body mass index [BMI] 40.0-44.9, adult; I25.10 Atherosclerotic heart disease of native coronary artery without angina pectoris; I10 Essential (primary) hypertension; G47.33 Obstructive sleep apnea (adult) (pediatric); Z87.891 Personal history of nicotine dependence
CPT/HCPCS: 71045; 92960; 93005; 93306; 96365; 96372; 96374; 96375; 96376; 99285; G0378; J0461; J1815; J2250; J3010; J3475; 84484-ER